=== PATIENT | female | born 1970 | race Caucasian/White ===

== ENCOUNTER 2019-05-29 06:47 | Day surgery (SDC) | payer OTHER ==
[~2019-05-29] VITALS: Ht 165.1 cm; Wt 65.2 kg
[~2019-05-29 06:47] MED LIST: LIAL1.2T PO
[2019-05-29] MEDS ORDERED: NS 1,000 ML IV ONE (07:00)
[2019-05-29] MEDS ORDERED: LIDOCAINE 2% INJ 100 MG/5 ML SDV (FOR ANES.) As Ordered ONE (07:12)
[2019-05-29] MEDS ORDERED: propofoL 200 MG/20 ML VIAL As Ordered ONE (07:12)
--- NOTE | 2019-05-29 08:41 | ROOR ---
Patient Name: Ray Fischer Procedure Date: 05/29/2019 8:08 AM Date of : 1970 Age: 49 Room: [facility] Gender: Female Note Status: Finalized Procedure: Total Colonoscopy to Cecum + Cold Snare Polypectomy + Hemoclips + Bx Indications: High risk colon cancer surveillance: Ulcerative colitis Providers: Yordy Xiong MD Referring MD: CIERRA NORTON MD, Luis Grimes Requesting Provider: Medicines: Monitored Anesthesia Care Complications: No immediate complications. Procedure: Pre-Anesthesia Assessment: - The heart rate, respiratory rate, oxygen saturations, blood pressure, adequacy of pulmonary ventilation, and response to care were monitored throughout the procedure. The Colonoscope was introduced through the anus and advanced to the terminal ileum, with identification of the appendiceal orifice and IC valve. The colonoscopy was performed without difficulty. The patient tolerated the procedure well. The quality of the bowel preparation was good. Findings: The perianal and digital rectal examinations were normal. Non-bleeding internal hemorrhoids were found during retroflexion. The hemorrhoids were small and Grade I (internal hemorrhoids that do not prolapse). A small polyp was found at 10 cm proximal to the anus. The polyp was sessile. The polyp was removed with a cold snare. Resection and retrieval were complete. To prevent bleeding after the polypectomy, two hemostatic clips were successfully placed (MR conditional). There was no bleeding at the end of the procedure. No other significant abnormalities were identified in a careful examination of the remainder of the colon. The terminal ileum appeared normal. Background biopsies were taken for histology with a cold forceps from the ascending colon, transverse colon, descending colon and rectosigmoid colon. These biopsy specimens were sent to Pathology. The exam was otherwise without abnormality on direct and retroflexion views. One medium-sized angioectasia without bleeding was found in the mid ascending colon. Impression: - Non-bleeding internal hemorrhoids. - One small polyp at 10 cm proximal to the anus, removed with a cold snare. Resected and retrieved. Clips (MR conditional) were placed. - The examined portion of the ileum was normal. - The examination was otherwise normal on direct and retroflexion views. - One non-bleeding colonic angioectasia. - Background biopsies were taken from the ascending colon, transverse colon, descending colon and rectosigmoid colon. - The exam was otherwise normal to the cecum. Recommendation: - Patient has a contact number available for emergencies. The signs and symptoms of potential delayed complications were discussed with the patient. Return to normal activities tomorrow. Written discharge instructions were provided to the patient. - High fiber diet. - Discharge patient to home. - Continue present medications. - Await pathology results. - Telephone GI clinic for pathology results in 1 week. - Return to referring physician. - Repeat colonoscopy for surveillance based on pathology results. - The findings and recommendations were discussed with the patient's family. Yordy Xiong MD Yordy Xiong MD 05/29/2019 8:41:37 AM Electronically signed by Yordy Xiong MD Number of Addenda: 0 Note Initiated On: 05/29/2019 8:08 AM Estimated Blood Loss: Estimated blood loss: none.
[2019-05-29 09:10] VITALS: BP 119/61
== END 2019-05-29 09:13 | disposition home or self-care (01) ==
LOC: M OPP 06:47
PROVIDERS: ATTEND Internal Medicine Gastroenterology
DX: R19.7 Diarrhea, unspecified (principal); K62.89 Other specified diseases of anus and rectum; K51.90 Ulcerative colitis, unspecified, without complications; D12.6 Benign neoplasm of colon, unspecified; K55.20 Angiodysplasia of colon without hemorrhage; K64.0 First degree hemorrhoids; M25.811 Other specified joint disorders, right shoulder; K92.1 Melena; R63.4 Abnormal weight loss